=== PATIENT | female | born 1945 | race Caucasian/White ===

== ENCOUNTER 2019-05-21 11:14 | Emergency (ER) | payer MEDICARE, OTHER ==
[2019-05-21] MEDS ORDERED: Ondansetron ODT 4 MG TAB ONE (11:29)
[2019-05-21] MEDS ORDERED: Meclizine HCl 25 MG TAB ONE (11:29)
[2019-05-21] MEDS ORDERED: Lorazepam 2 MG/ML VIAL ONE (11:57)
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
--- NOTE | 2019-05-21 12:29 | CT ---
CT OF THE CHEST, ABDOMEN AND PELVIS WITH IV CONTRAST INDICATION: Abdominal Pain COMPARISON: None FINDINGS: CHEST: Lungs: The lungs are clear. Pleural space: No effusion. Mediastinum: No pathologically enlarged lymph nodes are evident. Axilla: No pathologically enlarged lymph nodes. ABDOMEN: Lung bases: Clear Liver: Small hepatic cysts Gallbladder: Surgically after Pancreas: Normal. Adrenal glands: Normal. Spleen: Normal. Kidneys and ureters: Bilateral renal cysts. There is an extrarenal pelvis on the right. No dorian hydr onephrosis. Vasculature: There are mild vascular calcifications seen involving the visualized vasculature. Lymph nodes:No lymphadenopathy. Free fluid in abdomen:No free fluid is evident. PELVIS: Small and large bowel: Small hiatal hernia. Unopacified large and small bowel are of normal caliber. Appendix:Not definitely seen Bladder: Normal. Rectal and perirectal soft tissues:Normal. Reproductive structures: Not seen Free fluid in pelvis: No free fluid is evident. Lymphadenopathy pelvis: No lymphadenopathy is evident. Osseous structures: No acute osseous abnormality. No destructive osteolytic or osteoblastic lesion i s identified. There is scattered degenerative and osteoarthritic changes. There is grade 1 anterolisthesis of L4 on L5 and L5 on S1 which is likely degenerative. Soft tissues:Normal. IMPRESSION: 1. No acute traumatic injury demonstrated. 2. Findings called to Dr. Ross at 12:25 PM on May 21, 2019.
[2019-05-21 12:36] LABS: #Basophils 0.2 thou/uL (0.0-0.2); #Eosinphils 0.2 thou/uL (0.0-0.7); #Neutrophils 7.8 thou/uL (1.40-6.50); %Basophils 1.1 % (0.0-1.0); %Eosinophils 1.6 % (0.0-10.0); %Lymphocytes 35.4 % (21.0-51.0); %Monocytes 7.1 % (0.0-10.0); %Neutrophils 54.8 % (42.0-75.0); Hemoglobin 13.6 g/dL (12.0-16.0); Mean Corpuscular HGB CONC 32.6 g/dL (32.0-36.0); Mean Corpuscular Hemoglobin 29.2 pg (27.0-31.0); Mean Corpuscular Volume 89.6 fL (78.0-98.0); Mean Platelet Volume 7.5 fL (7.4-10.4); Platelet Count 395 thou/uL (130-400); RBC Distribution Width 11.5 % (11.5-14.5); Red Blood Cell (RBC) Count 4.65 mill/uL (4.20-5.40); White Blood Cell (WBC) Count 14.2 thou/uL (4.8-10.8)
[2019-05-21 12:43] LABS: PTT 31.7 SEC (22.9-36.1)
[2019-05-21 13:02] LABS: ALT (SGPT) 13 U/L (8-55); AST (SGOT) 16 U/L (5-34); Albumin 4.3 g/dL (3.4-4.8); Alcohol Less than 10 mg/dL (Less than 10); Alkaline Phosphatase 74 U/L (40-110); Anion Gap 17 mmol/L (10-20); BUN (Urea Nitrogen) 9 mg/dL (9.8-20.1); Bilirubin, Total 0.9 mg/dL (0.2-1.2); Calc. Creatinine Clearance 0 mL/min (70-130); Calcium 9.4 mg/dL (7.8-10.44); Carbon Dioxide 25 mmol/L (23-31); Chloride 95 mmol/L (98-107); Estimated GFR-MDRD 77; Globulin 3.2 g/dL (2.4-3.5); Glucose 138 mg/dL (83-110); Lipase 18 U/L (8-78); Potassium 3.4 mmol/L (3.5-5.1); Protein, Total 7.5 g/dL (6.0-8.3); Sodium 134 mmol/L (136-145)
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
[2019-05-21 14:27] LABS: Bilirubin Negative (Negative); Blood, Urine Negative (Negative); Clarity Clear (Clear); Glucose, Urine (Dipstick) Normal (Negative); Leukocyte Negative Leu/uL (Negative); Nitrite Negative (Negative); Protein, Urine (Dipstick) Negative (Neg-Trace); Urobilinogen Normal mg/dL (Less than 2)
[2019-05-21] MEDS ORDERED: Iopamidol-370 76% 500 ML 1 ML ONE (14:32)
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
== END 2019-05-21 15:24 | disposition home or self-care (01) ==
LOC: ERS 11:14
DX: R11.2 Nausea with vomiting, unspecified (principal); I10 Essential (primary) hypertension; E03.9 Hypothyroidism, unspecified; Z79.82 Long term (current) use of aspirin; Z79.899 Other long term (current) drug therapy; V89.2XXA Person injured in unspecified motor-vehicle accident, traffic, initial encounter
CPT/HCPCS: 36415; 70450; 71045; 71260; 72125; 72170; 74177; 80053; 80307; 81003; 83605; 83690; 85025; 85610; 85730; 96374; J2060; J8597; Q0162; Q9967